=== PATIENT | male | born 1995 | race Caucasian/White ===

== ENCOUNTER 2017-03-27 09:45 | Emergency (ER) | payer OTHER ==
[2017-03-27 11:03] VITALS: BP 130/62
--- NOTE | 2017-03-27 11:14 | ED ---
Throat Pain/Nasal Congestion - HPI Summary HPI Summary: 22 yr old male with the complaint of sore throat and fever. The patient states he has had symptoms for about a week. He has not had runny nose, cough or SOB. Only the sore throat associated with fever. No other complaint. - History of Current Complaint Chief Complaint: UCGeneralIllness Time Seen by Provider: 03/27/17 11:04 - Allergies/Home Medications Allergies/Adverse Reactions: Allergies Allergy/AdvReac Type Severity Reaction Status Date / Time No Known Allergies Allergy Verified 03/27/17 11:03 PMH/Surg Hx/FS Hx/Imm Hx Infectious Disease History: No Infectious Disease History: Denies: Traveled Outside the [place] in Last 30 Days - Family History Known Family History: Positive: None - Social History Occupation: Employed Part-time Lives: With Family Alcohol Use: None Substance Use Type: Reports: None Smoking Status (MU): Never Smoked Tobacco Review of Systems Positive: Fever, Chills Positive: Sore Throat All Other Systems Reviewed And Are Negative: Yes Physical Exam Triage Information Reviewed: Yes Vital Signs On Initial Exam: Initial Vitals Temp Pulse Resp BP Pulse Ox 98.8 F 87 18 130/62 100 03/27/17 11:00 03/27/17 11:00 03/27/17 11:00 03/27/17 11:00 03/27/17 11:00 Vital Signs Reviewed: Yes Appearance: Positive: Well-Appearing, No Pain Distress Skin: Positive: Warm, Skin Color Reflects Adequate Perfusion Head/Face: Positive: Normal Head/Face Inspection Eyes: Positive: EOMI ENT: Positive: Pharyngeal erythema. Negative: Muffled voice, Hoarse voice Neck: Positive: Nontender, No Lymphadenopathy Respiratory/Lung Sounds: Positive: Clear to Auscultation, Breath Sounds Present Cardiovascular: Positive: RRR. Negative: Murmur Abdomen Description: Positive: Nontender Musculoskeletal: Positive: Strength/ROM Intact Neurological: Positive: Sensory/Motor Intact, Alert, Oriented to Person Place, Time, CN Intact II-III Psychiatric: Positive: Normal - [place] Coma Scale Best Eye Response: 4 - Spontaneous Best Motor Response: 6 - Obeys Commands Best Verbal Response: 5 - Oriented Coma Scale Total: 15 Diagnostics - Vital Signs Vital Signs Temp Pulse Resp BP Pulse Ox 03/27/17 11:00 98.8 F 87 18 130/62 100 - Laboratory Lab Statement: Any lab studies that have been ordered have been reviewed, and results considered in the medical decision making process. EENT Course/Dx - Course Course Of Treatment: 22 yr old male with sore throat, fever. - Diagnoses Provider Diagnoses: Pharyngitis Discharge - Discharge Plan Condition: Good Disposition: HOME Patient Education Materials: Pharyngitis (ED) Referrals: No Primary Care Phys,NOPCP [Primary Care Provider] - [facility] [Outside]
== END 2017-03-27 11:23 | disposition home or self-care (01) ==
LOC: UCCORT 09:45
DX: J02.9 Acute pharyngitis, unspecified (principal)
CPT/HCPCS: 87651; 99211; G0463

== ENCOUNTER 2017-04-03 07:09 | Emergency (ER) | payer OTHER ==
[2017-04-03 07:47] VITALS: BP 130/61
--- NOTE | 2017-04-03 07:57 | ED ---
Throat Pain/Nasal Congestion - HPI Summary HPI Summary: 22 yr old male with the complaint of sore throat. Onset a little over a week ago. He had a rapid strep on the 5th that was negative. he states he has persistent sore throat that is not getting any better and he feels achey. Denies drooling. Denies trouble breathing. - History of Current Complaint Chief Complaint: UCRespiratory Time Seen by Provider: 04/03/17 07:50 - Allergies/Home Medications Allergies/Adverse Reactions: Allergies Allergy/AdvReac Type Severity Reaction Status Date / Time No Known Allergies Allergy Verified 04/03/17 07:43 PMH/Surg Hx/FS Hx/Imm Hx Previously Healthy: Yes Infectious Disease History: No Infectious Disease History: Denies: Traveled Outside the [place] in Last 30 Days - Family History Known Family History: Positive: None - Social History Occupation: Employed Part-time Alcohol Use: None Substance Use Type: Reports: None Smoking Status (MU): Never Smoked Tobacco Review of Systems Negative: Fever Positive: Sore Throat All Other Systems Reviewed And Are Negative: Yes Physical Exam Triage Information Reviewed: Yes Vital Signs On Initial Exam: Initial Vitals Temp Pulse Resp BP Pulse Ox 98.7 F 101 16 130/61 100 04/03/17 07:44 04/03/17 07:44 04/03/17 07:44 04/03/17 07:44 04/03/17 07:44 Vital Signs Reviewed: Yes Appearance: Positive: Well-Appearing, No Pain Distress Skin: Positive: Warm, Skin Color Reflects Adequate Perfusion Head/Face: Positive: Normal Head/Face Inspection Eyes: Positive: EOMI ENT: Positive: Pharyngeal erythema, TMs normal, Other - no stridor and no drooling.. Negative: Muffled voice, Hoarse voice Neck: Positive: Nontender, Enlarged Nodes @ - anterior superior cervical nodes. Respiratory/Lung Sounds: Positive: Clear to Auscultation, Breath Sounds Present Cardiovascular: Positive: RRR. Negative: Murmur Abdomen Description: Positive: Nontender Musculoskeletal: Positive: Strength/ROM Intact Neurological: Positive: Sensory/Motor Intact, Alert, Oriented to Person Place, Time, CN Intact II-III Psychiatric: Positive: Normal - [place] Coma Scale Best Eye Response: 4 - Spontaneous Best Motor Response: 6 - Obeys Commands Best Verbal Response: 5 - Oriented Coma Scale Total: 15 Diagnostics - Vital Signs Vital Signs Temp Pulse Resp BP Pulse Ox 04/03/17 07:44 98.7 F 101 16 130/61 100 - Laboratory Lab Statement: Any lab studies that have been ordered have been reviewed, and results considered in the medical decision making process. EENT Course/Dx - Course Course Of Treatment: 22 yr old with persistent sore throat and two neg rapid strep. he has has persistent symptoms for over a week and his throat is still red. [facility] sent. [place] home to follow up with PMD referral. - Diagnoses Provider Diagnoses: Pharyngitis Discharge - Discharge Plan Condition: Good Disposition: HOME Patient Education Materials: Pharyngitis (ED) Referrals: No Primary Care Phys,NOPCP [Primary Care Provider] - [facility] [place] [facility] [[facility]]
--- NOTE | 2017-04-04 10:42 | UC ---
- Progress Note Progress Note: please call the pt. with + [place] results cont. with rest, increase fluid, Tylenol as needed for pain / fever no contact sports x 4 weeks Course/Dx - Diagnoses Provider Diagnoses: Pharyngitis
== END 2017-04-03 08:53 | disposition home or self-care (01) ==
LOC: UCCORT 07:09
DX: J02.9 Acute pharyngitis, unspecified (principal); B27.90 Infectious mononucleosis, unspecified without complication
CPT/HCPCS: 36415; 86308; 87651; 99211; G0463